=== PATIENT | male | born 1990 | race Caucasian/White ===

== ENCOUNTER 2017-02-05 13:33 | Inpatient (IN) | payer OTHER ==
[~2017-02-05] VITALS: Ht 177.8 cm; Wt 95.5 kg
[2017-02-05 15:10] LABS: MEAN CORPUSCULAR HEMOGLOBIN 30.1 pg (27.0-33.0); MEAN CORPUSCULAR VOLUME 88.5 fl (80.0-96.0); RED CELL DISTRIBUTION WIDTH 12.6 % (11.5-14.5); WHITE BLOOD COUNT 12.8 K/mm3 (4.0-10.0)
[2017-02-05 15:29] LABS: METHADONE URINE NEGATIVE (NEGATIVE)
[2017-02-05 15:33] LABS: ALBUMIN 4.5 GM/DL (3.2-5.2); ALBUMIN/GLOBULIN RATIO 1.36 (1.00-1.93); ALKALINE PHOSPHATASE 67 U/L (45-117); ALT/SGPT 27 U/L (12-78); ANION GAP 7 MEQ/L (8-16); AST/SGOT 12 U/L (15-37); BILIRUBIN,DIRECT 0.1 MG/DL (0.0-0.2); BILIRUBIN,TOTAL 0.4 MG/DL (0.2-1.0); BLOOD UREA NITROGEN 16 MG/DL (7-18); CALCIUM LEVEL 9.1 MG/DL (8.5-10.1); CARBON DIOXIDE LEVEL 29 MEQ/L (21-32); CHLORIDE LEVEL 107 MEQ/L (98-107); CREATININE FOR GFR 0.84 MG/DL (0.70-1.30); GLOMERULAR FILTRATION RATE > 60.0 (>60); GLUCOSE, FASTING 90 MG/DL (70-105); POTASSIUM SERUM 4.7 MEQ/L (3.5-5.1); SODIUM LEVEL 143 MEQ/L (136-145); TOTAL PROTEIN 7.8 GM/DL (6.4-8.2)
[2017-02-05] MEDS ORDERED: traZODone 50 MG TAB PO PRN (17:00)
[2017-02-05] MEDS ORDERED: SERTRALINE HCL 50 MG TAB PO ONE (17:00)
[2017-02-05] MEDS ORDERED: ACETAMINOPHEN TAB 650MG DOSE (2X325MG) PO PRN (17:00)
[2017-02-05] MEDS ORDERED: MAALOX 30 ML SUSP *UDC PO PRN (17:00)
[2017-02-05] MEDS ORDERED: MOM 30ML SUSPENSION UDC PO PRN (17:00)
[2017-02-05 17:33] VITALS: BP 133/83
[2017-02-05] MEDS: hydrOXYzine 50 MG TAB PO PRN (18:54)
[2017-02-06 06:33] VITALS: BP 116/61
[2017-02-06] MEDS ORDERED: SERTRALINE HCL 50 MG TAB PO ONE (09:00)
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
--- NOTE | 2017-02-06 10:58 | MHHPEPDOC ---
[facility] History & Physical History and Physical DATE OF ADMISSION: Feb 05, 2017 at 16:32 LEGAL STATUS AT ADMISSION: 9.39 CHIEF COMPLAINT: "I wanted someone to listen to me. My life is making me exhausted". HISTORY OF THE PRESENT ILLNESS: Patient is a 27-year-old male, who served 2 deployments in [employer] [facility] and was in treatment for PTSD upon leaving the [employer]. He did not arrange follow up after leaving the and ran out of medication 4 months later. Now he finds himself overly stressed and depressed and attempted to kill himself by carbon monoxide poisoning. He closed himself in the car in the garage and then texted a friend. The friend told him to go to our ED where he was evaluated and admitted. This is his first psychiatric inpatient admission. 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 Suicidal/Self injurious: in the past he has thought about hanging himself but his got rid of their rope. Pt states that after treatment at [facility] he felt like a new person and a better , father and person. Psychotropic Medication History:Concerta as a youth, poor outcome, Ritalin as an adult - did well, Adderall as a youth-hallucinated. Prozac, no effect, Wellbutrin, not helpful, Effexor somewhat helpful, Pristiq helpful in low dose. ALLERGIES: Please see below. FAMILY PSYCHIATRIC HISTORY: denies SOCIAL HISTORY: Early Relations/development: raised by mother, she worked nights as a nurse, dad was not in the picture, he got into lots of trouble roaming the streets, ADHD in childhood, held back in 1st grade. Went to live with his father at age 12. Father had 2 other children who would always tell on Tobi and get him into trouble. Sibling order: oldest, 1 bio sister Paternal relationships: never Education: HS Occupational: FT student Legal: none Martial: 2 step-children Economic: [place] benefits for service connected disability. Supports: several friends from the service but he does not keep in regular contact with them. Abuse/trauma: denies physical or sexual abuse, denies neglect. SUBSTANCE ABUSE HISTORY: routine use of Cannabis until 1 month ago when he quit on his own. Tox screen positive for cannabinoids. Not prescribed medical Marijuana. Used for relaxation, "to make me happy and increase my appetite". Alcohol 1 drink daily with dinner. no detox or rehab. denies dui. PAST MEDICAL/SURGICAL HISTORY: PMHx: chronic back pain - 2 herniated discs sleep apnea. PSHX: denies VITAL SIGNS: Temperature 97.7, pulse 92, respiratory rate 18, blood pressure 116 /61, pulse oximetry 98% on room air. MENTAL STATUS EXAMINATION: General appearance: Patient is a 27-year old male, who is medium height and frame, curly dark hair, short on the sides, tattoos, good eye contact. Speech: spontaneous and clear. Thought processes: goal directed Thought content: appropriate Abstract reasoning and computation: good. Description of associations: good. Description of abnormal or psychotic thoughts: pt was suicide prior to admission and in our ED. He reports numerous stressors, marital and others. pt does not exhibit any psychotic symptoms. Judgment: poor Insight: limited Orientation: well oriented x 4. Recent and remote memory: grossly intact Attention span and concentration: good. Fund of knowledge: full. Mood: depressed Affect: anxious DIAGNOSES: 1. PTSD-chronic 2. ADHD 3. depression ASSESSMENT:Pt is and has 2 young children (8 & 5 yo). His is employed and works a lot. She owns a [employer] shop. 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 He is anxious about leaving the hospital so he does not miss classes. Stanford was in treatment as of a year ago at [facility] for PTSD. he stopped treatment 4 months because he thought he was better. He could see the warning signs that he was not doing well. He reports becoming isolative, irritable, snapping at his and children, being hard on himself, feeling angry towards life. Tobi reports adequate sleep, denies nightmares. States he will wake up and his heart is racing but he is not sure why. He also has sleep apnea. Tobi reports pretty good concentration and has learned to control much of his ADHD symptoms without medication. Grades are all A's. Stanford enjoys computers and helping people like in a customer service way. 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 He enjoys video games but does get bored rather quickly. Pt reports difficulty tolerating noise especially from the children. Pt reports he stopped cannabis on his own about a month ago just because it was the right thing to do. He denies guilt but reports feeling empty inside. He finds it difficult to trust people and feels betrayed by others who have said things he shared in confidence. He stated in a recent conversation with his she admits that she tends to push people away. He said he would like for them to attend marriage counseling. He is hard on himself for things that happened in the past. He was not asked to share details of his combat experience as it was clear he was not comfortable speaking about it. He says it was a very hard time in his life when he returned from deployment in 2013. Pt reports mood is up and down day to day. He does a few things that his considers impulsive but he feels it is his ADD. Pt is a walker, finding it hard to just sit still. Pt reports having a panic attack during his suicide attempt while in the car yesterday. He denies chest tightening of SOB. He gets sweaty and feels "annoyed ". Pt reports intrusive thoughts but denies flashback of past events. He uses the distraction of video games such as [employer] with his kids or [employer]. He reports he feels numb when he drinks alcohol. He says he is a happy person when he is feeling good. He states he enjoys meeting new people and getting to know them. When asked about hypervigilance pt admits he is always checking things out at home or on campus. He has to be sure doors are locked and he has his wallet. His lost her phone when they were in [place] recently and he was very upset with her because it has so much of their personal information on it. Pt does not like people standing behind him, or standing too close to him. PROBLEM LIST: 1. risk for suicide 2. ineffective coping 3. depression PLAN: close observation, monitor safety, begin Pristiq at 50 mg. pt states he feels like a zombie on 100 mg or 150 mg. pt request hydroxyzine for anxiety. Pt needs to be released for school on Thursday. Will contact and see if she can attend a family meeting on Thursday followed by discharge. Arrange outpatient services at either [facility] or [facility] for med mgt and therapy for ptsd. INITIAL TREATMENT PLAN: 1. Patient was admitted on a 9.39 2. Complete history was obtained. 3. With patients permission, family will be contacted and database will be expanded. 4. Patients medication regimen will be reviewed and changed accordingly. 5. Patient will be provided with protected environment. 6. Patient will be treated with individual, group, and milieu therapies. 7. Patient will receive supportive psych-education. 8. Discharge planning will commence immediately. 9. Outpatient follow-up treatment will be strongly recommended. 10. The initial treatment plan will focus initially on: * see problem list. ESTIMATED LENGTH OF STAY: 3-5 DAYS. TIME SPENT COUNSELING AND COORDINATING INITIAL CARE: 50 minutes. Laboratory Data 24H Labs Laboratory Tests 2 02/05/17 14:49: Anion Gap 7L, Glomerular Filtration Rate > 60.0, Calcium Level 9.1, Aspartate Amino Transf (AST/SGOT) 12L, Alanine Aminotransferase (ALT/SGPT) 27, Alkaline Phosphatase 67, Total Bilirubin 0.4, Direct Bilirubin 0.1, Total Protein 7.8, Albumin 4.5, Albumin/Globulin Ratio 1.36, Thyroid Stimulating Hormone (TSH) 1.540, Salicylates Level < 1.7L, Urine Amphetamines Screen NEGATIVE, Urine Benzodiazepines Screen NEGATIVE, Urine Opiates Screen NEGATIVE, Urine Methadone Screen NEGATIVE, Acetaminophen Level < 2.0L, Urine Barbiturates Screen NEGATIVE , Urine Phencyclidine Screen NEGATIVE, Urine Cocaine Metabolite Screen NEGATIVE , Urine Cannabinoids Screen POSITIVEH, Ethyl Alcohol Level 0.003 CBC/BMP Laboratory Tests 02/05/17 14:49 Red Blood Count 5.31, Mean Corpuscular Volume 88.5, Mean Corpuscular Hemoglobin 30.1, Mean Corpuscular Hemoglobin Concent 34.0, Red Cell Distribution Width 12.6 Medications No Active Prescriptions or Reported Meds Allergies Coded Allergies: Penicillins (Verified Allergy, Unknown, 02/05/17) Margot Colindres Feb 06, 2017 10:58
[2017-02-06] MEDS: DESVENLAFAXINE ER 50 MG TABLET (PRISTIQ) PO SCH (11:27)
[2017-02-06] MEDS: hydrOXYzine 50 MG TAB PO PRN (17:08)
[2017-02-06 18:00] VITALS: BP 134/59
[2017-02-07 06:44] VITALS: BP 150/70
[2017-02-07 07:21] LABS: MEAN CORPUSCULAR HEMOGLOBIN 31.5 pg (27.0-33.0); MEAN CORPUSCULAR HGB CONC 35.8 g/dl (32.0-36.5); MEAN CORPUSCULAR VOLUME 88.1 fl (80.0-96.0); RED CELL DISTRIBUTION WIDTH 12.4 % (11.5-14.5); WHITE BLOOD COUNT 6.5 K/mm3 (4.0-10.0)
[2017-02-07] MEDS: DESVENLAFAXINE ER 50 MG TABLET (PRISTIQ) PO SCH (08:24)
--- NOTE | 2017-02-07 11:55 | ECGEPIP ---
Stationary ECG Study [facility] Test Date: 2017-02-06 Pat Name: DAVID CHAN Department: Room: [place] [address] Gender: M Logistics Lead: MARQUIS : 1990 Requested By: Karina Crocker Order Number: [id number] Reading MD: Taz Pate Measurements Intervals [place] Rate: 95 P: 75 SD: 144 QRS: 48 QRSD: 91 T: 15 QT: 324 QTc: 408 Interpretive Statements SINUS RHYTHM POSSIBLE RIGHT ATRIAL ENLARGEMENT POSSIBLE LEFT ATRIAL ENLARGEMENT Nonspecific T wave abnormality Comparison tracing not on file Electronically Signed On 02-07-2017 11:55:09 EDT by Taz Pate
--- NOTE | 2017-02-07 16:21 | MHIPN ---
DATE: 02/07/2017 CHIEF COMPLAINT: Feels better. SUBJECTIVE: Seen for followup in the presence of staff. Says has been feeling a bit better and is more confident, less depressed, less anxious, and says is moving the right direction. He spoke of not feeling well for the last month and a half or so. Says had remained well for a few months after going off his medicines. Spoke of the impact it has had on his marriage. Says may be angry at him but plans to come in on Thursday (today is Thursday) for a family meeting prior to the patient possibly being discharged. He has written a letter describing his feelings, including to his , which he asked me to read. Sleep is fair, as is appetite. MENTAL STATUS EXAMINATION: He is neat. He is cooperative. There is no agitation. No psychomotor retardation. Affect is restricted but reactive. At times fairly broad. Denies any thoughts of harming himself or anyone else at present. Does not appear to be internally preoccupied. Cognition grossly intact. Judgment and insight are fair. ASSESSMENT: 1. Posttraumatic stress disorder. 2. Other specified depressive disorder, rule out major depressive disorder. 3. Attention deficit hyperactivity disorder, by history. PLAN: Continue current care, and I would suggest considering using an antidepressant to help with trauma-related symptoms. Encourage participation in activities in the unit. He has been started on Pristiq, desvenlafaxine, at 50 mg daily, and he will continue with that for now. VITAL SIGNS: Blood pressure 150/70, pulse 89, temperature 99. MTDD
[2017-02-07 18:00] VITALS: BP 139/82
[2017-02-08 06:46] VITALS: BP 150/75
[2017-02-08] MEDS: DESVENLAFAXINE ER 50 MG TABLET (PRISTIQ) PO SCH (08:06)
[2017-02-08 09:22] VITALS: BP 150/75
--- NOTE | 2017-02-08 16:50 | MHIPN ---
DATE: 02/08/2017 CHIEF COMPLAINT: Says feels good. SUBJECTIVE: Is seen for followup, in the presence of staff. Says feels good, moods are better, says had a good night's sleep, has been out and about in the [place], engaging with others. Says he also spoke with his , he apologized to her for feeling resentful of her, given her success. MENTAL STATUS EXAMINATION: Neat and cooperative, no agitation, coherent. Affect reactive, fairly broad. Denies any thoughts of harming himself or anyone else. Currently no evidence of any psychosis. Cognition is grossly intact. Judgment is good. Insight fair. ASSESSMENT: 1. Posttraumatic stress disorder. 2. Other specified depressive disorder. PLAN: Continue current care, and encourage participation in activities in the unit. He is due to have a meeting with his , and the rest of the staff, tomorrow. VITAL SIGNS: Blood pressure 150/75, pulse 100, temperature 97.8.
[2017-02-08 18:00] VITALS: BP 152/85
[2017-02-09 06:36] VITALS: BP 138/84
[2017-02-09] MEDS: DESVENLAFAXINE ER 50 MG TABLET (PRISTIQ) PO SCH (08:15)
[2017-02-09] MEDS ORDERED: HYDRO50TAB PO (08:46)
[2017-02-09] MEDS ORDERED: PRIS50TA PO (08:46)
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
== END 2017-02-09 12:30 | disposition home or self-care (01) | DRG 882 ==
LOC: M ED 13:33 → M ED INP 16:32 → M PSY 17:27
PROVIDERS: ADMIT Psychiatry & Neurology Psychiatry; ATTEND Psychiatry & Neurology Psychiatry
DX: F43.10 Post-traumatic stress disorder, unspecified (principal); F90.9 Attention-deficit hyperactivity disorder, unspecified type; F32.9 Major depressive disorder, single episode, unspecified; Z88.0 Allergy status to penicillin; F17.200 Nicotine dependence, unspecified, uncomplicated; M54.5 Low back pain; D72.829 Elevated white blood cell count, unspecified

== ENCOUNTER → 2020-10-27 | Outpatient (CLI) | payer OTHER ==
[~2020-10-27] MED LIST: HYDR1TAB33 PO; PRIS50TA PO
--- NOTE | 2020-10-29 14:51 | SLEEPCENT ---
NOCTURNAL POLYSOMNOGRAPHY DATE: 10/27/2020 ORDERED BY: CASSANDRA Eisenberg Nocturnal polysomnography was performed for evaluation of sleep physiology in this patient with a history suggesting the obstructive sleep apnea syndrome. 7 hours and 40 minutes of data were reviewed. There were 343.5 minutes of sleep identified. Sleep latency was short at 4.5 minutes. REM latency was short at 52 minutes. Sleep architecture was fairly well preserved with four REM cycles. There was a period of wake between 3:00 and 4:15 resulting in reduced sleep efficiency of 76%. The electrocardiogram showed a sinus rhythm with an average heart rate of 68 beats per minute; rate range 60 to 100. EEG showed reasonably normal waveforms for wake and sleep. There were 36 respiratory events identified of 10 seconds in duration or greater for an apnea-hypopnea index of 6.3. The events were primarily obstructive, more frequent in the supine posture, and not stage related. Arousals from respiratory events occurred only 1.4 times per hour and there were no oxygen desaturations below 90%. There was some minor activity in the limb leads and remaining measures of sleep physiology were normal. IMPRESSION: Mild positional obstructive sleep apnea syndrome (G47.33), apnea-hypopnea index 6.3. RECOMMENDATION: Sleep position retraining for avoidance of the supine posture may be sufficient to address the patient's complaints. Should sleep symptoms persist referral back to the [facility] for pressure therapy could be considered.
== END ==
LOC: M SLEEP 20:00
PROVIDERS: ATTEND Nurse Practitioner Family
DX: G47.33 Obstructive sleep apnea (adult) (pediatric) (principal)

== ENCOUNTER → 2022-11-10 | Outpatient (REF) | LOC: M PLAIMG 08:45 | PROVIDERS: ATTEND Internal Medicine | DX: R06.02 Shortness of breath (principal) ==